=== PATIENT | female | born 1985 | race American Indian/Alaskan Native ===

== ENCOUNTER 2019-04-30 18:48 | Emergency (ER) | payer MEDICAID ==
--- NOTE | 2019-04-30 21:26 | Emergency Department Report ---
Blank Doc - Documentation Documentation: 34-year-old female that presents with headache, dizziness, and uncontrolled HTN. This initial assessment/diagnostic orders/clinical plan/treatment(s) is/are subject to change based on patient's health status, clinical progression and re- assessment by fellow clinical providers in the ED. Further treatment and workup at subsequent clinical providers discretion. Patient/guardians urged not to elope from the ED as their condition may be serious if not clinically assessed and managed. Initial orders include: 1- Patient sent to [facility] for further evaluation and treatment 2- labs 3- EKG 4- CT head
[2019-04-30 21:45] LABS: Basophils # (Auto) 0.1 K/mm3 (0.0-0.1); Basophils % (Auto) 0.3 % (0.0-1.8); Eosinophils # (Auto) 0.3 K/mm3 (0.0-0.4); Eosinophils % (Auto) 1.8 % (0.0-4.3); Hemoglobin 13.1 gm/dl (10.1-14.3); Lymphocytes # (Auto) 2.2 K/mm3 (1.2-5.4); Lymphocytes % (Auto) 11.5 % (13.4-35.0); Mean Corpuscular HGB Conc 33 % (30-34); Mean Corpuscular Volume 78 fl (79-97); Monocytes # (Auto) 1.2 K/mm3 (0.0-0.8); Monocytes % (Auto) 6.2 % (0.0-7.3); Platelet Count 402 K/mm3 (140-440); Red Blood Count 5.16 M/mm3 (3.65-5.03)
[2019-04-30 22:02] LABS: BUN/Creatinine Ratio 11; Blood Urea Nitrogen 10 mg/dL (7-17); Calcium 9.8 mg/dL (8.4-10.2); Hemolysis Index 3
[2019-04-30] MEDS ORDERED: SODIUM CHLORIDE 0.9% 1000 ML IV SOLN IV ONE (22:26)
[2019-04-30 22:52] VITALS: BP 153/111
--- NOTE | 2019-04-30 23:09 | XRay Report ---
CHEST 2 VIEWS INDICATION / CLINICAL INFORMATION: dizziness. Elevated blood pressure. COMPARISON: 02/27/10 FINDINGS: SUPPORT DEVICES: None. HEART / MEDIASTINUM: No significant abnormality. LUNGS / PLEURA: No significant pulmonary or pleural abnormality. No pneumothorax. ADDITIONAL FINDINGS: No significant additional findings. IMPRESSION: 1. No acute findings. Signer Name: Brett Perez MD Signed: 04/30/2019 11:05 PM Workstation Name: [id number]
--- NOTE | 2019-04-30 23:35 | Emergency Department Report ---
ED General Adult HPI - General Chief complaint: High BP Stated complaint: HEAD PAIN Time Seen by Provider: 04/30/19 21:24 Source: patient Mode of arrival: Ambulatory Limitations: No Limitations - History of Present Illness Initial comments: Ms. Mayers is a 34-year-old female that presents with headache, dizziness,blurred vision, and uncontrolled HTN. HTN is controlled by Losartan, HCTZ, and Amolodipine. Pt states abdominal pain Stress and Headache x 3 days. pt states she has not take bp medications in 1 week. States headache is 5/10 frontal aching pain is exacerbated by movement and stress, pain is relieved by nothing tried. There is no n/v no fever or chills, no dysuria frequency or urgency , pt denies sob. Vital signs noted , pt denies abd pain no n/v , no fever or chills, Onset/Timin -: days(s) Location: head Radiation: non-radiation Severity scale (0 -10): 4 Quality: aching Consistency: constant Improves with: none Worsens with: movement Associated Symptoms: denies: confusion, chest pain, cough, diaphoresis, nausea/vomiting Treatments Prior to Arrival: none - Related Data Previous Rx's Medication Instructions Recorded Last Taken Type Acetaminophen [Tylenol] 650 mg PO Q6H PRN #30 capsule 05/01/19 Unknown Rx Amoxicillin/Potassium Clav 1 each PO BID #20 tablet 05/01/19 Unknown Rx [Augmentin 875-125 Tablet] Metoclopramide [Reglan] 10 mg PO Q8H PRN #30 tab 05/01/19 Unknown Rx diphenhydrAMINE [Benadryl CAP] 25 mg PO Q8HR PRN #30 capsule 05/01/19 Unknown Rx Allergies Allergy/AdvReac Type Severity Reaction Status Date / Time No Known Allergies Allergy Unverified 04/30/19 21:25 ED Review of Systems ROS: Stated complaint: HEAD PAIN Other details as noted in HPI Comment: All other systems reviewed and negative Constitutional: denies: chills, fever Eyes: vision change (blurred vision). denies: eye pain, eye discharge ENT: congestion. denies: ear pain, throat pain Respiratory: denies: cough, shortness of breath, wheezing Cardiovascular: denies: chest pain, palpitations Endocrine: no symptoms reported Gastrointestinal: denies: abdominal pain, nausea, vomiting, diarrhea, constipation Genitourinary: denies: urgency, dysuria, discharge Musculoskeletal: denies: back pain, joint swelling, arthralgia Skin: denies: rash, lesions Neurological: headache, abnormal gait. denies: weakness, numbness, paresthesias , confusion, vertigo Psychiatric: anxiety, depression. denies: auditory hallucinations, visual hallucinations, homicidal thoughts, suicidal thoughts Hematological/Lymphatic: denies: easy bleeding, easy bruising ED Past Medical Hx - Past Medical History Hx Hypertension: Yes Hx Asthma: Yes - Surgical History Past Surgical History?: No - Social History Smoking Status: Never Smoker Substance Use Type: None - Medications Home Medications: Home Medications Medication Instructions Recorded Confirmed Last Taken Type Acetaminophen [Tylenol] 650 mg PO Q6H PRN #30 capsule 05/01/19 Unknown Rx Amoxicillin/Potassium Clav 1 each PO BID #20 tablet 05/01/19 Unknown Rx [Augmentin 875-125 Tablet] Metoclopramide [Reglan] 10 mg PO Q8H PRN #30 tab 05/01/19 Unknown Rx diphenhydrAMINE [Benadryl CAP] 25 mg PO Q8HR PRN #30 capsule 05/01/19 Unknown Rx ED Physical Exam - General Limitations: No Limitations General appearance: alert, anxious - Head Head exam: Present: atraumatic, normocephalic - Expanded Head Exam Expanded Head exam: Absent: laceration, abrasion, contusion, hematoma, racoon eyes, lomeli's sign, general tenderness, tenderness of temporal artery - Eye Eye exam: Present: normal appearance, PERRL, EOMI. Absent: conjunctival injection, nystagmus Pupils: Present: normal accommodation - ENT ENT exam: Present: normal orophraynx, mucous membranes moist, TM's normal bilaterally, normal external ear exam, other (bilat maxillary sinus pain and pressure no swelling no erythema ) - Expanded ENT Exam Expanded Ear exam: Present: normal external inspection Throat exam: Positive: other (uvula midline no exudate no lesions no swelling no stridor ). Negative: tonsillar erythema, tonsillomegaly, tonsillar exudate, R peritonsillar mass, L peritonsillar mass - Neck Neck exam: Present: normal inspection, full ROM. Absent: tenderness, meningismus, lymphadenopathy, thyromegaly - Expanded Neck Exam Expanded Neck exam: Absent: tenderness, midline deformity, anterior neck swelling, carotid bruit, tracheal deviation - Respiratory Respiratory exam: Present: normal lung sounds bilaterally. Absent: respiratory distress, wheezes, stridor, chest wall tenderness - Cardiovascular Cardiovascular Exam: Present: regular rate, normal rhythm, normal heart sounds. Absent: systolic murmur, diastolic murmur, rubs, gallop - GI/Abdominal GI/Abdominal exam: Present: soft, normal bowel sounds. Absent: distended, t enderness, guarding, rebound, rigid, bruit, hernia - Rectal Rectal exam: Present: deferred - Extremities Exam Extremities exam: Present: normal inspection, full ROM. Absent: tenderness, normal capillary refill, pedal edema, joint swelling - Back Exam Back exam: Present: normal inspection, full ROM. Absent: tenderness, CVA tenderness (R), CVA tenderness (L), muscle spasm, paraspinal tenderness, vertebral tenderness, rash noted - Neurological Exam Neurological exam: Present: alert, oriented X3, CN II-XII intact, normal gait, reflexes normal. Absent: motor sensory deficit - Expanded Neurological Exam Expanded Patient oriented to: Present: person, place, time Speech: Present: fluid speech Cranial nerves: EOM's Intact: Normal, Gag Reflex: Normal, Tongue Deviation: Normal, Nystagmus: Normal, Facial Sensation: Normal Upper motor neuron: [place] Neglect: Normal, Pronator Drift: Normal Motor strength exam: RUE: 5, LUE: 5, RLE: 5 Best Eye Response ([place]): (4) open spontaneously Best Motor Response ([place]): (6) obeys commands Best Verbal Response ([place]): (5) oriented [place] Total: 15 - Psychiatric Psychiatric exam: Present: anxious. Absent: homicidal ideation, suicidal ideation - Skin Skin exam: Present: warm, dry, intact, normal color. Absent: rash ED Course Vital Signs 04/30/19 04/30/19 20:25 22:51 Temperature 97.7 F Pulse Rate 108 H 95 H Respiratory 20 17 Rate Blood Pressure 156/117 Blood Pressure 153/111 [Left] O2 Sat by Pulse 99 98 Oximetry ED Medical Decision Making - Lab Data Result diagrams: 04/30/19 21:32 04/30/19 21:32 - Radiology Data Radiology results: report reviewed, image reviewed Ordering Physician: CLARK HCAN NP Date of Service: 04/30/19 Procedure(s): XR chest routine 2V Accession Number(s): [id number] cc: CLARK CHAN NP Fluoro Time In Minutes: CHEST 2 VIEWS INDICATION / CLINICAL INFORMATION: dizziness. Elevated blood pressure. COMPARISON: 02/27/10 FINDINGS: SUPPORT DEVICES: None. HEART / MEDIASTINUM: No significant abnormality. LUNGS / PLEURA: No significant pulmonary or pleural abnormality. No pneumothorax. ADDITIONAL FINDINGS: No significant additional findings. IMPRESSION: 1. No acute findings. Signer Name: Brett Perez MD Signed: 04/30/2019 11:05 PM Workstation Name: [id number] Transcribed By: DT Dictated By: Boris Perez MD Electronically Authenticated By: Boris Perez MD Signed Date/Time: 04/30/192304 DD/ 02 Ordering Physician: YONI OJEDA NP Date of Service: 04/30/19 Procedure(s): CT head/brain wo con Accession Number(s): [id number] cc: YONI OJEDA NP CT HEAD WITHOUT CONTRAST INDICATION / CLINICAL INFORMATION: Patient complains of headache dizziness x 1 day.. TECHNIQUE: All CT scans at this location are performed using CT dose reduction for ALARA by means of automated exposure control. COMPARISON: None available. FINDINGS: HEMORRHAGE: None. EXTRA-AXIAL SPACES: Normal in size and morphology for the patient's age. VENTRICULAR SYSTEM: Normal in size and morphology for the patient's age. CEREBRAL PARENCHYMA: No significant abnormality. No acute territorial infarct. MIDLINE SHIFT OR HERNIATION: None. CEREBELLUM / BRAINSTEM: No significant abnormality. ORBITS: Normal as visualized. SOFT TISSUES of HEAD: No significant abnormality. CALVARIUM: No significant abnormality. PARANASAL SINUSES / MASTOID AIR CELLS: Normal as visualized. ADDITIONAL FINDINGS: None. IMPRESSION: 1. No acute intracranial abnormality. Signer Name: Brett Perez MD Signed: 04/30/2019 11:59 PM Workstation Name: [id number] Transcribed By: DT Dictated By: Boris Perez MD Electronically Authenticated By: Boris Perez MD Signed Date/Time: 04/30/19 7083 DD/ 56 TD/TT: Critical care attestation.: If time is entered above; I have spent that time in minutes in the direct care of this critically ill patient, excluding procedure time. ED Disposition Clinical Impression: Mild dehydration Sinusitis Qualifiers: Sinusitis location: maxillary Chronicity: acute Recurrence: non-recurrent Qualified Code(s): J01.00 - Acute maxillary sinusitis, unspecified Headache Qualifiers: Headache type: unspecified Headache chronicity pattern: acute headache Intractability: not intractable Qualified Code(s): R51 - Headache Disposition: DC TO HOME OR SELFCARE Is pt being admited?: No Does the pt Need Aspirin: No Condition: Stable Instructions: Sinusitis (ED), Acute Headache (ED), Dehydration (ED) Additional Instructions: Hold Triamterine/Hydrochlorothiazide until you see Dr. Gilliam tomorrow Take Am lodipine 10 mg by mouth daily, Hydrate as discussed and agreed. Return to emergency if symptoms worsen. Prescriptions: Amoxicillin/Potassium Clav [Augmentin 875-125 Tablet] 1 each PO BID #20 tablet diphenhydrAMINE [Benadryl CAP] 25 mg PO Q8HR PRN #30 capsule PRN Reason: headache, dizziness Metoclopramide [Reglan] 10 mg PO Q8H PRN #30 tab PRN Reason: Headache Acetaminophen [Tylenol] 650 mg PO Q6H PRN #30 capsule PRN Reason: Headache Referrals: ROBERT GILLIAM MD [Referring] - 3-5 Days Forms: Work/School Release Form(ED) Time of Disposition: 00:47
[2019-04-30] MEDS ORDERED: dexAMETHasone 20 MG/5 ML VIAL IV ONE (23:58)
[2019-04-30] MEDS ORDERED: METOCLOPRAMIDE 10 MG/2 ML INJ IV ONE (23:58)
[2019-04-30] MEDS ORDERED: diphenhydrAMINE 50 MG/ML VIAL IV ONE (23:58)
[2019-04-30] MEDS ORDERED: ACETAMINOPHEN 500 MG TAB PO ONE (23:59)
--- NOTE | 2019-05-01 00:04 | Cat Scan Report ---
CT HEAD WITHOUT CONTRAST INDICATION / CLINICAL INFORMATION: Patient complains of headache & dizziness x 1 day.. TECHNIQUE: All CT scans at this location are performed using CT dose reduction for ALARA by means of automated e xposure control. COMPARISON: None available. FINDINGS: HEMORRHAGE: None. EXTRA-AXIAL SPACES: Normal in size and morphology for the patient's age. VENTRICULAR SYSTEM: Normal in size and morphology for the patient's age. CEREBRAL PARENCHYMA: No significant abnormality. No acute territorial infarct. MIDLINE SHIFT OR HERNIATION: None. CEREBELLUM / BRAINSTEM: No significant abnormality. ORBITS: Normal as visualized. SOFT TISSUES of HEAD: No significant abnormality. CALVARIUM: No significant abnormality. PARANASAL SINUSES / MASTOID AIR CELLS: Normal as visualized. ADDITIONAL FINDINGS: None. IMPRESSION: 1. No acute intracranial abnormality. Signer Name: Brett Perez MD Signed: 04/30/2019 11:59 PM Workstation Name: [id number]
== END 2019-05-01 01:08 | disposition home or self-care (01) ==
LOC: ED 18:48
DX: J32.9 Chronic sinusitis, unspecified (principal); E86.0 Dehydration; I10 Essential (primary) hypertension; J45.909 Unspecified asthma, uncomplicated; Z79.899 Other long term (current) drug therapy
CPT/HCPCS: 36415; 70450; 71046; 80048; 82140; 83690; 84703; 85025; 96361; 96374; 96375; 99284; J1100; J1200; J2765; J7030